=== PATIENT | female | born 1990 | race Hispanic/Latino ===

== ENCOUNTER 2021-05-26 10:46 | Emergency (ER) | payer OTHER ==
--- NOTE | 2021-05-26 11:58 | RAD REPORT ---
EXAM DESCRIPTION: US - Abdomen Exam Limited - 05/26/2021 11:50 am CLINICAL HISTORY: Epigastric discomfort x 1 month COMPARISON: No comparisons FINDINGS: The gallbladder demonstrates no gallstones. No pericholecystic fluid or gallbladder wall t hickening. The common bile duct is normal measuring 3 mm. The liver demonstrates no findings of intrahepatic biliary dilatation. IMPRESSION: Unremarkable examination.
[2021-05-26 15:09] LABS: Absolute Lymphocytes (CBC) 1.9 K/uL (0.7-4.9); Basophils % 0.6 % (0-1.3); Hematocrit 32.7 % (36.0-45.0); Lymphocytes % 29.3 % (15.3-44.8); MPV 9.5 fL (7.6-11.3); RBC Red Blood Cell Count 4.13 M/uL (3.86-4.86)
[2021-05-26 15:25] LABS: ALT/SGPT 16 U/L (12-78); AST/SGOT 6 U/L (15-37); Alkaline Phosphatase 71 U/L (45-117); BUN Blood Urea Nitrogen 8 mg/dL (7-18); Bicarbonate 26 mmol/L (21-32); Bilirubin Direct < 0.1 mg/dL (0-0.2); Bilirubin Total 0.3 mg/dL (0.2-1.0); Glucose Level 83 mg/dL (74-106); Lipase 96 U/L (73-393); Potassium 3.8 mmol/L (3.5-5.1); Protein, Total 8.3 g/dL (6.4-8.2); Sodium Level 139 mmol/L (136-145)
--- NOTE | 2021-05-26 15:30 | ER ---
Nurse's Notes [facility] Name: Misty Lugo Age: 30 yrs Sex: Female : 1990 Arrival Date: 05/26/2021 Time: 10:50 Bed 16 Private MD: Diagnosis: Abdominal pain, unspecified;UTI/ Urinary tract infection, site not specified Presentation: 05/26 11:26 Chief complaint: Patient states: Epigastric discomfort that began 1 month ago. Pt ss reports that the pain varies, but never goes away. Coronavirus screen: Client denies travel out of the [place] in the last 14 days. Ebola Screen: Patient denies exposure to infectious person. Patient denies travel to an Ebola-affected area in the 21 days before illness onset. Initial Sepsis Screen: Does the patient meet any 2 criteria? No. Patient's initial sepsis screen is negative. Does the patient have a suspected source of infection? No. Patient's initial sepsis screen is negative. Risk Assessment: Do you want to hurt yourself or someone else? Patient reports no desire to harm self or others. Onset of symptoms was April 22, 2021. 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 - Social history:: Smoking status: Patient denies any tobacco usage or history of. Screenin:58 Abuse screen: Denies threats or abuse. Nutritional screening: No deficits noted. vg1 Tuberculosis screening: No symptoms or risk factors identified. Fall Risk No fall in past 12 months (0 pts). No secondary diagnosis (0 pts). IV access (20 points). Ambulatory Aid- None/Bed Rest/Nurse Assist (0 pts). Gait- Normal/Bed Rest/Wheelchair (0 pts) Mental Status- Oriented to own ability (0 pts). Total Salgado Fall Scale indicates No Risk (0-24 pts). Assessment: 14:35 General: Appears in no apparent distress. comfortable, Behavior is calm, cooperative. vg1 Pain: Complains of pain in epigastric area, suprapubic area and right upper quadrant Pain currently is 2 out of 10 on a pain scale. Quality of pain is described as dull, Pain began about a month ago. Neuro: Level of Consciousness is awake, alert, obeys commands, Oriented to person, place, time, situation. Cardiovascular: Patient's skin is warm and dry. Respiratory: Airway is patent Respiratory effort is even, unlabored. GI: Bowel sounds present X 4 quads. Abd is soft and non tender X 4 quads. Reports bloating, epigastric pain, belching Patient currently denies diarrhea, nausea, vomiting. : No signs and/or symptoms were reported regarding the genitourinary system. EENT: No signs and/or symptoms were reported regarding the EENT system. Derm: Skin is intact, is healthy with good turgor. Musculoskeletal: Circulation, motion, and sensation intact. 17:06 Reassessment: Patient appears in no apparent distress at this time. Patient and/or vg1 family updated on plan of care and expected duration. Pain level reassessed. Patient is alert, oriented x 3, equal unlabored respirations, skin warm/dry/pink. Patient denies pain at this time. Vital Signs: 11:26 BP 114 / 75; Pulse 82; Resp 15; Temp 98.7(TE); Pulse Ox 100% on R/A; Weight 55 kg; ss Height 5 ft. 2 in. (160 cm); Pain 2/10; 14:55 BP 112 / 84; Pulse 70; Resp 16; Pulse Ox 100% ; vg1 11:26 Body Mass Index 21.48 (55.00 kg, 160 cm) ED Course: 10:50 Patient arrived in ED. ds1 11:28 Triage completed. ss 11:28 Arm band placed on right wrist. ss 11:50 US Abdomen Limited In Process Unspecified. EDMS 14:15 Ellie White, CRISTINA is Primary Nurse. vg1 14:27 Jaylen Blackwell PA is PHCP. jr8 14:27 Antoine Horan MD is Attending Physician. jr8 14:54 Initial lab(s) drawn, by pr, sent to lab. Inserted saline lock: 20 gauge in left vg1 antecubital area, using aseptic technique. Blood collected. 14:58 Patient has correct armband on for positive identification. Placed in gown. Bed in low vg1 position. Call light in reach. Side rails up X 1. Adult w/ patient. 15:29 Wilber Cruz MD is Referral Physician. jr8 17:05 No provider procedures requiring assistance completed. IV discontinued, intact, vg1 bleeding controlled, No redness/swelling at site. Pressure dressing applied. Administered Medications: No medications were administered Outcome: : Discharge ordered by . jr8 17:06 Discharged to home ambulatory, with family. vg1 17:06 Condition: stable 17:06 Discharge instructions given to patient, family, friend, Instructed on discharge instructions, follow up and referral plans. medication usage, Demonstrated understanding of instructions, follow-up care, medications, Prescriptions given X 3. 17:06 Patient left the ED. vg1 Signatures: Dispatcher [employer] EDOR Nereyda Lo ds1 Maryam Diana RN RN Jaylen Hoyt PA PA jr8 Ellie White RN RN vg1
--- NOTE | 2021-05-26 15:30 | EDPHYS ---
Physician Documentation [facility] Name: Misty Lugo Age: 30 yrs Sex: Female : 1990 Arrival Date: 05/26/2021 Time: 10:50 Bed 16 Private MD: TALHA Physician Antoine Horan HPI: 05/26 15:27 This 30 yrs old Female presents to ER via Ambulatory with complaints of jr8 Abdominal Pain. 15:27 The patient presents with abdominal pain in the epigastric area, in the upper abdomen. jr8 Onset: The symptoms/episode began/occurred gradually, 1 month(s) ago. The symptoms do not radiate. Associated signs and symptoms: none. The symptoms are described as vague. Modifying factors: The symptoms are alleviated by nothing, the symptoms are aggravated by food. Severity of pain: At its worst the pain was mild in the emergency department the pain is unchanged. The patient has not experienced similar symptoms in the past. The patient has not recently seen a physician. 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 - Social history:: Smoking status: Patient denies any tobacco usage or history of. ROS: 15:27 Eyes: Negative for injury, pain, redness, and discharge, ENT: Negative for injury, jr8 pain, and discharge, Neck: Negative for injury, pain, and swelling, Cardiovascular: Negative for chest pain, palpitations, and edema, Respiratory: Negative for shortness of breath, cough, wheezing, and pleuritic chest pain, Back: Negative for injury and pain, MS/Extremity: Negative for injury and deformity, Skin: Negative for injury, rash, and discoloration, Neuro: Negative for headache, weakness, numbness, tingling, and seizure. 15:27 Abdomen/GI: Positive for abdominal pain, Negative for nausea, vomiting, and diarrhea, abdominal distension, hematemesis, black/tarry stool, rectal pain, rectal bleeding, bowel incontinence, flatulence. Exam: 15:27 Constitutional: This is a well developed, well nourished patient who is awake, alert, jr8 and in no acute distress. ENT: Nares patent. No nasal discharge, no septal abnormalities noted. Tympanic membranes are normal and external auditory canals are clear. Oropharynx with no redness, swelling, or masses, exudates, or evidence of obstruction, uvula midline. Mucous membranes moist. Cardiovascular: Regular rate and rhythm with a normal S1 and S2. No gallops, murmurs, or rubs. Normal PMI, no JVD. No pulse deficits. Respiratory: Lungs have equal breath sounds bilaterally, clear to auscultation and percussion. No rales, rhonchi or wheezes noted. No increased work of breathing, no retractions or nasal flaring. Abdomen/GI: Soft, non-tender, with normal bowel sounds. No distension or tympany. No guarding or rebound. No evidence of tenderness throughout. Back: No spinal tenderness. No costovertebral tenderness. Full range of motion. Skin: Warm, dry with normal turgor. Normal color with no rashes, no lesions, and no evidence of cellulitis. MS/ Extremity: Pulses equal, no cyanosis. Neurovascular intact. Full, normal range of motion. Neuro: Awake and alert, GCS 15, oriented to person, place, time, and situation. Cranial nerves II-XII grossly intact. Motor strength 5/5 in all extremities. Sensory grossly intact. Cerebellar exam normal. Normal gait. Vital Signs: 11:26 BP 114 / 75; Pulse 82; Resp 15; Temp 98.7(TE); Pulse Ox 100% on R/A; Weight 55 kg; ss Height 5 ft. 2 in. (160 cm); Pain 2/10; 14:55 BP 112 / 84; Pulse 70; Resp 16; Pulse Ox 100% ; vg1 11:26 Body Mass Index 21.48 (55.00 kg, 160 cm) MDM: 14:28 Patient medically screened. [facility] 15:27 Data reviewed: vital signs, nurses notes, lab test result(s), radiologic studies, 8 ultrasound. Data interpreted: Pulse oximetry: on room air is 100 %. Interpretation: normal. 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 ED course: Patient with no acute findings on labs or ultrasonography. Patient has remained hemodynamically stable and without fever. Abdomen soft and benign in appearance and upon palpation. Recommended follow-up with gastroenterology. Close return precautions given. Patient understands everything discussed with her and will follow up and/or come back. 05/26 14:27 Order name: Basic Metabolic Panel [facility] 05/26 14:27 Order name: CBC with Diff; Complete Time: 15:16 [facility] 05/26 14:27 Order name: Hepatic Function; Complete Time: 15:27 [facility] 05/26 14:27 Order name: Lipase; Complete Time: 15:27 [facility] 05/26 14:28 Order name: Basic Metabolic Panel; Complete Time: 15:27 EDMS 05/26 16:00 Order name: Urine Dipstick-Ancillary; Complete Time: 16:25 EDNY 05/26 11:32 Order name: US Abdomen Limited; Complete Time: 14:27 ss 05/26 14:27 Order name: IV Saline Lock; Complete Time: 14:54 [facility] 05/26 14:27 Order name: Labs collected and sent; Complete Time: 14:54 [facility] 05/26 14:55 Order name: Urine Dipstick-Ancillary (obtain specimen); Complete Time: 16:05 [facility] 05/26 14:55 Order name: Urine Test (obtain specimen); Complete Time: 16:05 [facility] 05/26 16:01 Order name: Urine Microscopic Only bd 05/26 16:39 Order name: Urine Culture EDMS Administered Medications: No medications were administered Disposition: 05/27 07:28 Co-signature as Attending Physician, Antoine Horan MD I agree with the assessment and hugo plan of care. Disposition Summary: 05/26/21 15:29 Discharge Ordered Location: Home jr8 Problem: new jr8 Symptoms: have improved jr8 Condition: Stable jr8 Diagnosis - Abdominal pain, unspecified jr8 - UTI/ Urinary tract infection, site not specified jr8 Followup: jr8 - With: Wilber Cruz MD - When: 2 - 3 days - Reason: Recheck today's complaints, Continuance of care, Re-evaluation by your physician Discharge Instructions: - Discharge Summary Sheet jr8 - Abdominal Pain, Adult jr8 Forms: - Medication Reconciliation Form jr8 - Thank You Letter jr8 - Antibiotic Education jr8 - Prescription Opioid Use jr8 Prescriptions: - omeprazole 40 mg Oral capsule,delayed release(DR/EC) - take 1 capsule by ORAL route once daily before a meal; 30 capsule; Refills: 0, jr8 Product Selection Permitted - dicyclomine 20 mg Oral Tablet - take 1 tablet by ORAL route 3 times per day As needed; 20 tablet; Refills: 0, jr8 Product Selection Permitted - Macrobid 100 mg Oral Capsule - take 1 capsule by ORAL route every 12 hours for 7 days; 14 capsule; Refills: 0, jr8 Product Selection Permitted Signatures: Dispatcher [employer] Antoine Angulo MD MD cha Smirch, Shelby, RN RN Jaylen Hoyt PA PA jr8
[2021-05-26 16:00] LABS: Urine Blood 3+ (Negative); Urine Glucose Negative (Negative); Urine Protein Negative (Negative)
[2021-05-26 16:38] LABS: Urine Bacteria LOADED /HPF (<20); Urine RBC <5 /HPF (NONE SEEN)
[2021-05-26 17:23] VITALS: TEMP 98.7; O2SAT 100
[2021-05-26 17:32] VITALS: BP 112/84
== END 2021-05-26 17:06 | disposition home or self-care (01) ==
LOC: ER 10:46
DX: N39.0 Urinary tract infection, site not specified (principal)
CPT/HCPCS: 36415; 76705; 80048; 80076; 81003; 81015; 83690; 85025; 87077; 87086; 87088; 87186; 99284

== ENCOUNTER 2021-07-18 13:02 | Emergency (ER) | payer OTHER ==
[2021-07-18 13:30] LABS: Urine Blood Negative (Negative); Urine Glucose Negative (Negative); Urine Protein Negative (Negative)
[2021-07-18 14:01] LABS: Urine Bacteria 20-50 /HPF (<20); Urine RBC NONE SEEN /HPF (NONE SEEN)
[2021-07-18] MEDS ORDERED: MORPHINE 4 MG/ML SYR ONE (14:03)
[2021-07-18] MEDS ORDERED: NA CHLORIDE 0.9% 1,000 ML ONE (14:04)
[2021-07-18] MEDS ORDERED: ONDANSETRON 4 MG/2 ML VIAL ONE (14:04)
[2021-07-18 14:14] LABS: Absolute Lymphocytes (CBC) 1.1 K/uL (0.7-4.9); Basophils % 0.5 % (0-1.3); Hematocrit 31.3 % (36.0-45.0); Lymphocytes % 18.5 % (15.3-44.8); MPV 10.1 fL (7.6-11.3); RBC Red Blood Cell Count 4.15 M/uL (3.86-4.86)
[2021-07-18 14:33] LABS: ALT/SGPT 17 U/L (12-78); AST/SGOT 6 U/L (15-37); Albumin 4.1 g/dL (3.4-5.0); Alkaline Phosphatase 91 U/L (45-117); BUN Blood Urea Nitrogen 8 mg/dL (7-18); Bicarbonate 26 mmol/L (21-32); Bilirubin Direct < 0.1 mg/dL (0-0.2); Bilirubin Total 0.2 mg/dL (0.2-1.0); Glucose Level 98 mg/dL (74-106); Lipase 80 U/L (73-393); Potassium 3.7 mmol/L (3.5-5.1); Protein, Total 8.4 g/dL (6.4-8.2); Sodium Level 142 mmol/L (136-145)
[2021-07-18] MEDS ORDERED: PROMETHAZINE INJ 25 MG/ML AMP ONE ×2 (14:50→16:57)
[2021-07-18] MEDS ORDERED: KETOROLAC 30 MG/ML INJ ONE (14:59)
[2021-07-18] MEDS ORDERED: ASPIRIN 81 MG CHEWABLE TABLET ONE (14:59)
--- NOTE | 2021-07-18 15:19 | RAD REPORT ---
EXAM DESCRIPTION: CT - Abdomen Pelvis W Contrast - 07/18/2021 3:00 pm CLINICAL HISTORY: ABD PAIN, nausea, history of gastritis COMPARISON: Abdomen Exam Limited dated 05/26/2021 TECHNIQUE: Biphasic, helical CT imaging of the abdomen and pelvis was performed following 100 ml non -ionic IV contrast. No oral contrast administered. All CT scans are performed using dose optimization technique as appropriate and may include automated exposure control or mA/KV adjustment according to patient size. FINDINGS: No suspicious findings in the lung bases. The liver, spleen, and pancreas show no suspicious findings. Gallbladder and biliary tree are also wi thout suspicious finding. Symmetric renal function is seen with no hydronephrosis or suspicious renal mass. No pyelonephritis o r acute parenchymal process. Partially filled urinary bladder shows no acute finding. Cystitis cannot be fully excluded. No adrenal abnormalities. Heterogeneous enhancement of the uterus noted probably from 1 or more fibroids. Ovaries are posteriorly positioned near the presacral region. No primary ova valarie process identified. Fallopian tubes do not appear to be dilated. No gastric dilatation gastric wall thickening. Small bowel loops are not dilated. Stool is present in the cecum and proximal portion of the ascending colon. Remainder of the colon is mostly decompressed . Mild colitis cannot be excluded. No colon mass suspected. No free air, free fluid or pneumatosis. No mass or bulky lymphadenopathy. A very small incidental um bilical hernia is present. No suspicious bony findings. IMPRESSION: No obstruction, free air or surgically emergent finding. Mild nonspecific colitis is possible. Stomach and small bowel are not outside of range of normal. Hai endicitis is not suspected. No acute or TRANSPLANTER finding. Heterogeneity of the uterine wall enhancement is probably normal variant or possibly due to small fibroids. Myometritis would not be suspected.
--- NOTE | 2021-07-18 15:47 | EDPHYS ---
Physician Documentation [facility] Name: Misty Lugo Age: 31 yrs Sex: Female : 1990 Arrival Date: 07/18/2021 Time: 13:04 Bed 19 Private MD: ED Physician Austin Bhat HPI: 07/18 13:36 This 31 yrs old Female presents to ER via Ambulatory with complaints of pm1 Abdominal Pain. 13:36 The patient presents with abdominal pain that is diffuse. pm1 13:36 Onset: The symptoms/episode began/occurred 3 day(s) ago. The symptoms do not radiate. pm1 Associated signs and symptoms: Pertinent positives: nausea and vomiting, Pertinent negatives: chest pain, constipation, diarrhea, dysuria, fever, shortness of breath. The symptoms are described as vague. Modifying factors: The symptoms are alleviated by nothing, the symptoms are aggravated by nothing. Severity of pain: in the emergency department the pain is actually worse. Similar symptoms present roughly 1 month ago. Patient was seen by GI on follow-up. Had EGD and colonoscopy performed. Patient has follow-up with GI pending. 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 - Social history:: Smoking status: Patient denies any tobacco usage or history of. ROS: 13:36 Constitutional: Negative for fever, chills, and weight loss, Cardiovascular: Negative pm1 for chest pain, palpitations, and edema, Respiratory: Negative for shortness of breath, cough, wheezing, and pleuritic chest pain. 13:36 MS/Extremity: Negative for injury and deformity, Skin: Negative for injury, rash, and discoloration. 13:36 Neuro: Negative for headache, weakness, numbness, tingling, and seizure. 13:36 Abdomen/GI: Positive for abdominal pain, nausea and vomiting, Negative for diarrhea, constipation. 13:36 All other systems are negative. Exam: 13:36 Constitutional: This is a well developed, well nourished patient who is awake, alert, pm1 and in no acute distress. Head/Face: Normocephalic, atraumatic. 13:36 Back: No spinal tenderness. No costovertebral tenderness. Full range of motion. Skin: Warm, dry with normal turgor. Normal color with no rashes, no lesions, and no evidence of cellulitis. MS/ Extremity: Pulses equal, no cyanosis. Neurovascular intact. Full, normal range of motion. 13:36 Cardiovascular: Exam negative for acute changes, Rate: normal, Rhythm: regular, Pulses: no pulse deficits are appreciated. 13:36 Respiratory: Exam negative for acute changes, respiratory distress, shortness of breath. 13:36 Abdomen/GI: Inspection: abdomen appears normal, Palpation: soft, in all quadrants, moderate abdominal tenderness, in the umbilical area. 13:36 Neuro: Exam negative for acute changes, Orientation: is normal, Mentation: is normal, Motor: is normal, moves all fours. Vital Signs: 13:11 BP 113 / 79; Pulse 73; Resp 20; Temp 98.6(TE); Pulse Ox 99% on R/A; Weight 53.52 kg kg (R); Height 116 in. (294.64 cm); Pain 8/10; 14:00 BP 114 / 74; Pulse 70; Resp 18; Pulse Ox 100% on R/A; tr6 13:11 Body Mass Index 6.16 (53.52 kg, 294.64 cm) kg MDM: 13:20 Patient medically screened. pm1 15:45 Data reviewed: vital signs. Data interpreted: Pulse oximetry: on room air is 100 %. pm1 Interpretation: normal. Counseling: I had a detailed discussion with the patient and/or guardian regarding: the historical points, exam findings, and any diagnostic results supporting the discharge/admit diagnosis, lab results, radiology results, the need for outpatient follow up, a knocker off, to return to the emergency department if symptoms worsen or persist or if there are any questions or concerns that arise at home. 07/18 13:30 Order name: Urine Dipstick-Ancillary; Complete Time: 14:14 EDRI 07/18 13:34 Order name: Basic Metabolic Panel; Complete Time: 15:21 pm1 07/18 13:34 Order name: CBC with Diff; Complete Time: 15:21 pm1 07/18 13:34 Order name: Hepatic Function; Complete Time: 15:21 pm1 07/18 13:34 Order name: Lipase; Complete Time: 15:21 pm1 07/18 13:34 Order name: Urine Microscopic Only; Complete Time: 14:14 pm1 07/18 14:03 Order name: Urine Culture EDRI 07/18 14:28 Order name: CT Abd/Pelvis - IV Contrast Only; Complete Time: 15:21 pm1 07/18 14:51 Order name: Urine --Ancillary (enter results); Complete Time: 16:13 eb 07/18 13:34 Order name: IV Saline Lock; Complete Time: 14:03 pm1 07/18 13:34 Order name: Labs collected and sent; Complete Time: 14:04 pm1 07/18 13:34 Order name: Urine Dipstick-Ancillary (obtain specimen); Complete Time: 13:36 pm1 07/18 13:34 Order name: Urine Test (obtain specimen); Complete Time: 13:36 pm1 Administered Medications: 14:03 Drug: NS 0.9% 1000 ml Route: IV; Rate: 1000 ml; Site: left antecubital; tr6 16:08 Follow up: Response: No adverse reaction; IV Status: Completed infusion; IV Intake: tr6 1000ml 14:03 Drug: morphine 4 mg Route: IVP; Site: left antecubital; tr6 16:07 Follow up: Response: No adverse reaction; Pain is decreased tr6 14:03 Drug: Zofran (Ondansetron) 4 mg Route: IVP; Site: left antecubital; tr6 16:07 Follow up: Response: No adverse reaction tr6 14:47 Drug: Phenergan (promethazine) 12.5 mg Route: IVP; Site: left antecubital; tr6 16:07 Follow up: Response: No adverse reaction; Nausea is decreased tr6 16:00 Drug: Cipro (ciprofloxacin) 500 mg Route: PO; tr6 16:07 Follow up: Response: No adverse reaction tr6 16:00 Drug: Flagyl (metroNIDAZOLE) 500 mg Volume: 100 ml; Route: IVPB; Rate: 200 ml/hr; tr6 Infused Over: 30 mins; Site: left antecubital; 16:07 Follow up: Response: No adverse reaction; IV Status: Completed infusion; IV Intake: tr6 100ml Disposition Summary: 07/18/21 15:46 Discharge Ordered Location: Home pm1 Problem: new pm1 Symptoms: have improved pm1 Condition: Stable pm1 Diagnosis - Other abdominal pain - colitis pm1 Followup: pm1 - With: Emergency Department - When: As needed - Reason: Worsening of condition Followup: pm1 - With: Private Physician - When: 2 - 3 days - Reason: Recheck today's complaints, Continuance of care, Re-evaluation by your physician Discharge Instructions: - Discharge Summary Sheet pm1 - Abdominal Pain, Adult pm1 - Colitis pm1 Forms: - Medication Reconciliation Form pm1 - Thank You Letter pm1 - Antibiotic Education pm1 - Prescription Opioid Use pm1 Prescriptions: - Flagyl 500 mg Oral Tablet - take 1 tablet by ORAL route every 8 hours for 10 days; 30 tablet; Refills: 0, pm1 Product Selection Permitted - Cipro 500 mg Oral Tablet - take 1 tablet by ORAL route every 12 hours for 10 days; 20 tablet; Refills: 0, pm1 Product Selection Permitted - Tramadol 50 mg Oral Tablet - take 1 tablet by ORAL route every 8 hours as needed; 12 tablet; Refills: 0, pm1 Product Selection Permitted Addendum: 07/23/2021 04:37 Co-signature as Attending Physician, Austin delgado a2 Signatures: Dispatcher [employer] Armnado Fleming NP [employer] pm1 Austin Bhat MD MD pa2 Norma Schulz RN RN tr6 Divine Leos RN RN kg Corrections: (The following items were deleted from the chart) 07/18 18:12 13:36 The patient presents with abdominal pain pm1 pm1
--- NOTE | 2021-07-18 15:47 | ER ---
Nurse's Notes [facility] Name: Misty Lugo Age: 31 yrs Sex: Female : 1990 Arrival Date: 07/18/2021 Time: 13:04 Bed 19 Private MD: Diagnosis: Other abdominal pain-colitis Presentation: 07/18 13:11 Chief complaint: Patient states: Abdominal pain and nausea x 3 days. Pt stated I kg thought it might be constipation so I took ducolax and had a BM today and still no relief. Coronavirus screen: Vaccine status: Patient reports receiving the 2nd dose of the covid vaccine. Date April 11, 2021 [employer] Patient reports receiving the 1st dose of the Covid vaccine. Date March 14, 2021 [facility]. Ebola Screen: Patient negative for fever greater than or equal to 101.5 degrees Fahrenheit, and additional compatible Ebola Virus Disease symptoms Patient denies exposure to infectious person. Patient denies travel to an Ebola-affected area in the 21 days before illness onset. Initial Sepsis Screen: Does the patient meet any 2 criteria? No. Patient's initial sepsis screen is negative. Does the patient have a suspected source of infection? No. Patient's initial sepsis screen is negative. Risk Assessment: Do you want to hurt yourself or someone else? Patient reports no desire to harm self or others. Onset of symptoms was July 15, 2021. 13:11 Method Of Arrival: Ambulatory kg 13:11 Acuity: MARIIA 3 kg Triage Assessment: 13:16 General: Appears in no apparent distress. Behavior is calm, cooperative, appropriate kg for age. Pain: Complains of pain in abdomen. GI: Reports lower abdominal pain, upper abdominal pain, bloating, gaseousness. 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 - Social history:: Smoking status: Patient denies any tobacco usage or history of. Screenin:17 Abuse screen: Denies threats or abuse. Denies injuries from another. Nutritional kg screening: No deficits noted. Tuberculosis screening: No symptoms or risk factors identified. Tuberculosis screening: No symptoms or risk factors identified. Fall Risk None identified. Assessment: 14:04 GI: Bowel sounds present X 4 quads. Abd is non tender. tr6 15:03 Reassessment: Patient and/or family updated on plan of care and expected duration. Pain tr6 level reassessed. Patient is alert, oriented x 3, equal unlabored respirations, skin warm/dry/pink. Patient states symptoms have improved. Vital Signs: 13:11 BP 113 / 79; Pulse 73; Resp 20; Temp 98.6(TE); Pulse Ox 99% on R/A; Weight 53.52 kg kg (R); Height 116 in. (294.64 cm); Pain 8/10; 14:00 BP 114 / 74; Pulse 70; Resp 18; Pulse Ox 100% on R/A; tr6 13:11 Body Mass Index 6.16 (53.52 kg, 294.64 cm) kg ED Course: 13:00 Inserted saline lock: 18 gauge in left antecubital area, using aseptic technique. Blood tr6 collected. 13:04 Patient arrived in ED. ds1 13:16 Triage completed. kg 13:17 Patient has correct armband on for positive identification. kg 13:17 No provider procedures requiring assistance completed. kg 13:19 Norma Schulz, CRISTINA is Primary Nurse. tr6 13:20 Armando Flores NP is PHCP. pm1 13:20 Mervin Mclaughlin MD is Attending Physician. pm1 13:21 Austin Bhat MD is Attending Physician. pm1 14:59 CT Abd/Pelvis - IV Contrast Only In Process Unspecified. EDMS 14:59 Patient placed in an exam room. tr6 15:18 Urine Culture Sent. sv Administered Medications: 14:03 Drug: NS 0.9% 1000 ml Route: IV; Rate: 1000 ml; Site: left antecubital; tr6 16:08 Follow up: Response: No adverse reaction; IV Status: Completed infusion; IV Intake: tr6 1000ml 14:03 Drug: morphine 4 mg Route: IVP; Site: left antecubital; tr6 16:07 Follow up: Response: No adverse reaction; Pain is decreased tr6 14:03 Drug: Zofran (Ondansetron) 4 mg Route: IVP; Site: left antecubital; tr6 16:07 Follow up: Response: No adverse reaction tr6 14:47 Drug: Phenergan (promethazine) 12.5 mg Route: IVP; Site: left antecubital; tr6 16:07 Follow up: Response: No adverse reaction; Nausea is decreased tr6 16:00 Drug: Cipro (ciprofloxacin) 500 mg Route: PO; tr6 16:07 Follow up: Response: No adverse reaction tr6 16:00 Drug: Flagyl (metroNIDAZOLE) 500 mg Volume: 100 ml; Route: IVPB; Rate: 200 ml/hr; tr6 Infused Over: 30 mins; Site: left antecubital; 16:07 Follow up: Response: No adverse reaction; IV Status: Completed infusion; IV Intake: tr6 100ml Intake: 16:07 IV: 100ml; Total: 100ml. tr6 16:08 IV: 1000ml; Total: 1100ml. tr6 Outcome: 15:46 Discharge ordered by MD. pm1 16:43 Patient left the ED. tr6 Signatures: Dispatcher [employer] EDMS Elvira Potter, Nereyda Han RN ds1 Armando Flores, NOE JEWELRY STORE MANAGER pm1 Norma Schulz RN RN tr6 Divine Leos RN RN kg Corrections: (The following items were deleted from the chart) 13:21 13:11 BP 113 / 7; Pulse 73bpm; Resp 20bpm; Pulse Ox 99% RA; Temp 98.6F Temporal; 53.52 kg kg Reported; Height 116 in.; BMI: 6.17; Pain 8/10; kg
[2021-07-18] MEDS ORDERED: HYDROMORPHONE HCL 2 MG/ML inj ONE (16:12)
[2021-07-18] MEDS ORDERED: CIPROFLOXACIN HCL 500 MG TAB ONE (16:17)
[2021-07-18] MEDS ORDERED: METRONIDAZOLE 500mg IVPB 500 MG/100 ML BAG IV ONE (16:17)
[2021-07-18 16:50] VITALS: TEMP 98.6
[2021-07-18 16:51] VITALS: BP 114/74; O2SAT 100
== END 2021-07-18 16:43 | disposition home or self-care (01) ==
LOC: ER 13:02
DX: K52.9 Noninfective gastroenteritis and colitis, unspecified (principal)
CPT/HCPCS: 96361; 87088; 85025; 87086; 80048; 36415; 81025; 80076; 83690; 74177; 96375; 96374; 99284; Q9967; J2550; J1170; J7030; J2405; 81003; 81015

== ENCOUNTER 2021-07-21 16:32 | Emergency (ER) | payer OTHER ==
--- NOTE | 2021-07-21 17:49 | EDPHYS ---
Physician Documentation [facility] Name: Misty Lugo Age: 31 yrs Sex: Female : 1990 Arrival Date: 07/21/2021 Time: 16:37 Bed 16 Private MD: ED Physician Tj Hunt HPI: 07/21 18:16 This 31 yrs old Female presents to ER via Ambulatory with complaints of Nausea.jr8 18:16 The patient presents to the emergency department with nausea, vomiting. Onset: The jr8 symptoms/episode began/occurred gradually. Possible causes: antibiotics, quinolone. The symptoms are aggravated by nothing. The symptoms are alleviated by nothing. Associated signs and symptoms: The patient has no apparent associated signs or symptoms. Severity of symptoms: At their worst the symptoms were mild in the emergency department the symptoms are unchanged. The patient has not experienced similar symptoms in the past. The patient has been recently seen by a physician:. Patient recently seen in the emergency room diagnosed with colitis. Was put on Cipro and Flagyl. At the time was nauseated as well but did not go home with any nausea medicine. Stated that she has had some nausea and vomiting at home since then. Currently denies worsening of pain or any other new symptoms.. 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 - Social history:: Smoking status: Patient denies any tobacco usage or history of. ROS: 18:16 Eyes: Negative for injury, pain, redness, and discharge, ENT: Negative for injury, jr8 pain, and discharge, Neck: Negative for injury, pain, and swelling, Cardiovascular: Negative for chest pain, palpitations, and edema, Respiratory: Negative for shortness of breath, cough, wheezing, and pleuritic chest pain, Back: Negative for injury and pain, MS/Extremity: Negative for injury and deformity, Skin: Negative for injury, rash, and discoloration, Neuro: Negative for headache, weakness, numbness, tingling, and seizure. 18:16 Abdomen/GI: Positive for nausea and vomiting, Negative for abdominal pain, abdominal cramps, abdominal distension. Exam: 18:16 Constitutional: This is a well developed, well nourished patient who is awake, alert, jr8 and in no acute distress. Chest/axilla: Normal chest wall appearance and motion. Nontender with no deformity. No lesions are appreciated. Respiratory: Lungs have equal breath sounds bilaterally, clear to auscultation and percussion. No rales, rhonchi or wheezes noted. No increased work of breathing, no retractions or nasal flaring. Abdomen/GI: Soft, non-tender, with normal bowel sounds. No distension or tympany. No guarding or rebound. No evidence of tenderness throughout. Back: No spinal tenderness. No costovertebral tenderness. Full range of motion. Skin: Warm, dry with normal turgor. Normal color with no rashes, no lesions, and no evidence of cellulitis. MS/ Extremity: Pulses equal, no cyanosis. Neurovascular intact. Full, normal range of motion. Neuro: Awake and alert, GCS 15, oriented to person, place, time, and situation. Cranial nerves II-XII grossly intact. Motor strength 5/5 in all extremities. Sensory grossly intact. Vital Signs: 17:09 BP 134 / 72; Pulse 67; Resp 16; Temp 97.6(TE); Pulse Ox 100% on R/A; Weight 53.52 kg kg (R); Height 5 ft. 2 in. (160 cm); Pain 3/10; 17:09 Body Mass Index 20.91 (53.52 kg, 160 cm) kg MDM: 17:28 Patient medically screened. jr8 17:47 Data reviewed: vital signs, nurses notes, old medical records, and as a result, I will jr8 discharge patient. Data interpreted: Pulse oximetry: on room air is 100 %. Interpretation: normal. Counseling: I had a detailed discussion with the patient and/or guardian regarding: the historical points, exam findings, and any diagnostic results supporting the discharge/admit diagnosis, the need for outpatient follow up, a family practitioner, a process maintenance technician, to return to the emergency department if symptoms worsen or persist or if there are any questions or concerns that arise at home. Administered Medications: 17:48 Drug: Zofran (Ondansetron) 4 mg Route: PO; es2 Disposition: 07/22 11:13 Co-signature as Attending Physician, Tj Hunt MD I agree with the assessment and kdr plan of care. Disposition Summary: 07/21/21 17:48 Discharge Ordered Location: Home jr8 Problem: new jr8 Symptoms: have improved jr8 Condition: Stable jr8 Diagnosis - Nausea jr8 Followup: jr8 - With: Private Physician - When: 5 - 6 days - Reason: Recheck today's complaints, Continuance of care, Re-evaluation by your physician Discharge Instructions: - Discharge Summary Sheet jr8 - Nausea, Adult jr8 Forms: - Medication Reconciliation Form jr8 - Thank You Letter jr8 - Antibiotic Education jr8 - Prescription Opioid Use jr8 Prescriptions: - ondansetron 4 mg Oral tablet,disintegrating - take 1 tablet by ORAL route every 6 hours As needed; 16 tablet; Refills: 0, jr8 Product Selection Permitted Signatures: Tj Hunt MD MD [facility] Jaylen Blackwell PA PA jr8 Divine Leos, RN RN kg Susan Ellis RN RN es2
--- NOTE | 2021-07-21 17:49 | ER ---
Nurse's Notes [facility] Name: Misty Lugo Age: 31 yrs Sex: Female : 1990 Arrival Date: 07/21/2021 Time: 16:37 Bed 16 Private MD: Diagnosis: Nausea Presentation: 07/21 17:09 Chief complaint: Patient states: Nausea x 2 days. Pt stated, "I was just here Monday kg and they gave me nausea medications and it helped but yesterday it started again. They started me on Cipro, Flagyl, and tramadol but I've been throwing up the antibiotic.". Coronavirus screen: Vaccine status:. Ebola Screen: Patient negative for fever greater than or equal to 101.5 degrees Fahrenheit, and additional compatible Ebola Virus Disease symptoms Patient denies exposure to infectious person. Patient denies travel to an Ebola-affected area in the 21 days before illness onset. Initial Sepsis Screen: Does the patient meet any 2 criteria? No. Patient's initial sepsis screen is negative. Does the patient have a suspected source of infection? No. Patient's initial sepsis screen is negative. Risk Assessment: Do you want to hurt yourself or someone else? Patient reports no desire to harm self or others. Onset of symptoms was July 20, 2021. 17:09 Method Of Arrival: Ambulatory kg 17:09 Acuity: MARIIA 3 kg Triage Assessment: 17:15 General: Appears in no apparent distress. Behavior is calm, cooperative, appropriate kg for age, quiet. Pain: Complains of pain in abdomen Pain currently is 3 out of 10 on a pain scale. GI: Reports lower abdominal pain, nausea, vomiting. 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 - Social history:: Smoking status: Patient denies any tobacco usage or history of. Screenin:16 Abuse screen: Denies threats or abuse. Denies injuries from another. Nutritional kg screening: No deficits noted. Tuberculosis screening: No symptoms or risk factors identified. Fall Risk None identified. Vital Signs: 17:09 BP 134 / 72; Pulse 67; Resp 16; Temp 97.6(TE); Pulse Ox 100% on R/A; Weight 53.52 kg kg (R); Height 5 ft. 2 in. (160 cm); Pain 3/10; 17:09 Body Mass Index 20.91 (53.52 kg, 160 cm) kg ED Course: 16:37 Patient arrived in ED. mr 17:13 Triage completed. kg 17:15 Arm band placed on right wrist. kg 17:16 Patient has correct armband on for positive identification. kg 17:20 Aletha Simeon is Primary Nurse. aj2 17:27 Jaylen Blackwell PA is PHCP. jr8 17:27 Tj Hunt MD is Attending Physician. jr8 Administered Medications: 17:48 Drug: Zofran (Ondansetron) 4 mg Route: PO; es2 Outcome: 17:48 Discharge ordered by . jr8 17:51 Discharged to home ambulatory. aj2 17:51 Condition: stable 17:51 Discharge instructions given to patient, Instructed on discharge instructions, follow up and referral plans. Demonstrated understanding of instructions, follow-up care, medications, Prescriptions given X 1. 17:55 Patient left the ED. aj2 Signatures: Jason Aranza mr Jaylen Blackwell PA PA jr8 Divine Leos, RN RN kg Aletha Simeon aj2 Susan Ellis RN RN es2
[2021-07-21 18:00] VITALS: BP 134/72; TEMP 97.6; O2SAT 100
[2021-07-21] MEDS ORDERED: ONDANSETRON 4 MG (ODT) TAB ONE (18:12)
== END 2021-07-21 17:55 | disposition home or self-care (01) ==
LOC: ER 16:32
DX: R11.0 Nausea (principal)
CPT/HCPCS: 99283

== ENCOUNTER 2021-11-15 21:05 | Emergency (ER) | payer OTHER ==
--- OUTSIDE RECORDS SUMMARY | 2021-11-15 21:08 | XMS REPORT | Continuity of Care Document ---
:1990 Author Organization [facility] t Address [address] [place] [address] [address] [place] [address] Care Team Providers Name Role Phone Pcp, Does Not Have A Primary Care Physician VERITO Attending Clinician Unavailable Verito LYLES Attending Clinician Doctor Unassigned, Name Attending Clinician Unavailable Payers Payer Name Policy Type Policy Number Effective Date Expiration Date S ource Problems Condition Condition Condition Status Onset Resolution Last Treating Co mments Source Name Details Category Date Date Treatment Clinician Date No known No known Disease Unive rs active active ity of problems problems [facility] Allergies, Adverse Reactions, Alerts Allergy Allergy Status Severity Reaction(s) Onset Inactive Treating Comm ents Source Name Type Date Date Clinician NO KNOWN Drug Active Univers ALLERGIE Class ity of S [facility] Social History Social Habit Start Date Stop Date Quantity Comments Source Tobacco use and 2021-09-28 2021-09-28 Never used Universit y of exposure 00:00:00 00:00:00 [facility] Alcohol intake 2021-09-28 2021-09-28 Current drinker Unive rsity of 00:00:00 00:00:00 of alcohol [facility] (finding) [place] Sex Assigned [birth year] Universit y of 00:00:00 00:00:00 [facility] Smoking Status Start Date Stop Date Source Unknown if ever smoked Universit y [facility] Never smoker [facility] Medications Ordered Filled Start Stop Current Ordering Indication Dosage Frequency Signature Comments Components Source Medication Medication Date Date Medication? Clinician (SIG) Name Name pregabalin 2020-10 Yes Univers 150 mg 2-02 ity of capsule 00:00: [address] busPIRone 2020-10 Yes Univers 10 mg 0-28 ity of tablet 00:00: [place] 00 [facility] LINZESS 145 2020-10 Yes 1{capsu Take 1 U nivers mcg capsule 0-20 le} capsule by it y of 00:00: mouth [place] 00 daily. [facility] Vital Signs Vital Name Observation Time Observation Value Comments Source Systolic blood 2021-09-28 21:09:00 114 mm[Hg] Univer sity of pressure [facility] Diastolic blood 2021-09-28 21:09:00 77 mm[Hg] Unive rsity of [facility] Heart rate 2021-09-28 21:09:00 65 /min [facility] Body temperature 2021-09-28 21:09:00 37.17 [facility] Res[facility] rate 2021-09-28 21:09:00 18 /min [facility] Body height 2021-09-28 21:09:00 160 cm [facility] Body weight 2021-09-28 21:09:00 53.978 kg [facility] BMI 2021-09-28 21:09:00 21.08 kg/m2 [facility] Procedures Procedure Date / Time Performed Performing Clinician [facility] e PAP SMEAR-LIQUID 2021-09-28 22:15:00 Marie Sellers [facility] REFERRAL- 2021-07-31 05:01:00 Doctor Unassigned, No [facility] REQUEST/RESPONSE Name [facility] Encounters Start End Encounter Admission Attending Care Care Encounter Source Date/Time Date/Time Type Type Clinicians Facility Department ID 2022-09-30 2022-09-30 Outpatient R MARIE SELLERS [facility] [id number] Univers 13:00:00 13:00:[id number] [facility] 2021-09-28 2021-09-28 Office Marie Sellers [facility] [id number] Univers 15:04:04 16:24:40 Visit [place] [id number] i ty of [place] [id number] Freddy ZHAO [id number] Hi dical [address] 2021-09-28 2021-09-28 Outpatient R VERITO MARIE [facility] [id number] Univers 15:00:00 16:24:40 ity of [facility] 2021-07-31 2021-07-31 Orders Doctor COTY [id number] Univers 00:00:00 00:00:00 Only Unassigned, CATHI [id number] ity of [facility] [id number] Sukhwinder as [id number] [facility] [address] Results This patient has no known results.
[2021-11-15 22:08] LABS: Urine Blood 2+ (Negative); Urine Glucose Negative (Negative); Urine Protein Negative (Negative); Urine pH 5.5 (5.0-7.0)
[2021-11-15] MEDS ORDERED: ONDANSETRON 4 MG/2 ML VIAL ONE (22:12)
[2021-11-15] MEDS ORDERED: MORPHINE 4 MG/ML SYR ONE (22:12)
[2021-11-15] MEDS ORDERED: NA CHLORIDE 0.9% 1,000 ML ONE (22:12)
[2021-11-15 22:24] LABS: Absolute Lymphocytes (CBC) 2.3 K/uL (0.7-4.9); Hematocrit 33.9 % (36.0-45.0); Lymphocytes % 29.7 % (15.3-44.8); MPV 9.3 fL (7.6-11.3)
[2021-11-15 22:32] LABS: ALT/SGPT 18 U/L (12-78); AST/SGOT 9 U/L (15-37); Albumin 3.7 g/dL (3.4-5.0); Alkaline Phosphatase 83 U/L (45-117); BUN Blood Urea Nitrogen 5 mg/dL (7-18); Bicarbonate 27 mmol/L (21-32); Bilirubin Direct < 0.1 mg/dL (0-0.2); Bilirubin Total 0.2 mg/dL (0.2-1.0); Glucose Level 90 mg/dL (74-106); Lipase 227 U/L (73-393); Potassium 3.6 mmol/L (3.5-5.1); Protein, Total 7.8 g/dL (6.4-8.2); Sodium Level 138 mmol/L (136-145)
--- NOTE | 2021-11-15 23:57 | EDPHYS ---
Physician Documentation [facility] Name: Misty Lugo Age: 31 yrs Sex: Female : 1990 Arrival Date: 11/15/2021 Time: 21:05 Bed 17 Private MD: ED Physician Antoine Horan HPI: 11/15 23:41 This 31 yrs old Female presents to ER via Ambulatory with complaints of hugo Abdominal Pain. 23:41 The patient presents with abdominal pain in the epigastric area, in the upper abdomen, hugo abdominal distention in the upper abdomen. Onset: The symptoms/episode began/occurred today. The symptoms do not radiate. Associated signs and symptoms: Pertinent positives: nausea. The symptoms are described as crampy. Modifying factors: The symptoms are alleviated by nothing, the symptoms are aggravated by home stress. Severity of pain: At its worst the pain was mild in the emergency department the pain is unchanged. The patient has not experienced similar symptoms in the past. 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 - Social history:: Smoking status: Patient denies any tobacco usage or history of. - Family history:: not pertinent. ROS: 23:41 Constitutional: Negative for fever, chills, and weight loss, Eyes: Negative for injury, hugo pain, redness, and discharge, ENT: Negative for injury, pain, and discharge, Neck: Negative for injury, pain, and swelling, Cardiovascular: Negative for chest pain, palpitations, and edema, Respiratory: Negative for shortness of breath, cough, wheezing, and pleuritic chest pain, Back: Negative for injury and pain, : Negative for injury, bleeding, discharge, and swelling, MS/Extremity: Negative for injury and deformity, Skin: Negative for injury, rash, and discoloration, Neuro: Negative for headache, weakness, numbness, tingling, and seizure, Psych: Negative for depression, anxiety, suicide ideation, homicidal ideation, and hallucinations, Allergy/Immunology: Negative for hives, rash, and allergies, Endocrine: Negative for neck swelling, polydipsia, polyuria, polyphagia, and marked weight changes, Hematologic/Lymphatic: Negative for swollen nodes, abnormal bleeding, and unusual bruising. 23:41 Abdomen/GI: Positive for abdominal pain, abdominal cramps, of the epigastric area, right upper quadrant and left upper quadrant. Exam: 23:41 Constitutional: This is a well developed, well nourished patient who is awake, alert, hugo and in no acute distress. Head/Face: Normocephalic, atraumatic. Eyes: Pupils equal round and reactive to light, extra-ocular motions intact. Lids and lashes normal. Conjunctiva and sclera are non-icteric and not injected. Cornea within normal limits. Periorbital areas with no swelling, redness, or edema. ENT: Nares patent. No nasal discharge, no septal abnormalities noted. Tympanic membranes are normal and external auditory canals are clear. Oropharynx with no redness, swelling, or masses, exudates, or evidence of obstruction, uvula midline. Mucous membranes moist. Neck: Trachea midline, no thyromegaly or masses palpated, and no cervical lymphadenopathy. Supple, full range of motion without nuchal rigidity, or vertebral point tenderness. No Meningismus. Chest/axilla: Normal chest wall appearance and motion. Nontender with no deformity. No lesions are appreciated. Cardiovascular: Regular rate and rhythm with a normal S1 and S2. No gallops, murmurs, or rubs. Normal PMI, no JVD. No pulse deficits. Respiratory: Lungs have equal breath sounds bilaterally, clear to auscultation and percussion. No rales, rhonchi or wheezes noted. No increased work of breathing, no retractions or nasal flaring. Back: No spinal tenderness. No costovertebral tenderness. Full range of motion. Female : Normal external genitalia. Skin: Warm, dry with normal turgor. Normal color with no rashes, no lesions, and no evidence of cellulitis. MS/ Extremity: Pulses equal, no cyanosis. Neurovascular intact. Full, normal range of motion. Neuro: Awake and alert, GCS 15, oriented to person, place, time, and situation. Cranial nerves II-XII grossly intact. Motor strength 5/5 in all extremities. Sensory grossly intact. Cerebellar exam normal. Normal gait. Psych: Awake, alert, with orientation to person, place and time. Behavior, mood, and affect are within normal limits. 23:41 Abdomen/GI: Inspection: distension, that is mild, gravid appearance, ia not appreciated, Bowel sounds: normal, Palpation: mild abdominal tenderness, in the epigastric area, right upper quadrant and left upper quadrant, Liver: is firm, Hernia: not appreciated. Vital Signs: 21:19 BP 124 / 83; Pulse 61; Resp 18; Temp 98.7; Pulse Ox 100% on R/A; Weight 63.5 kg; Height tw5 5 ft. 2 in. (160 cm); Pain 7/10; 22:00 BP 126 / 81; Pulse 62; Resp 18 S; Pulse Ox 100% on R/A; as6 23:20 BP 115 / 74; Pulse 70; Resp 18 S; Pulse Ox 100% on R/A; as11/16 00:00 BP 121 / 79; Pulse 65; Resp 18 S; Pulse Ox 100% on R/A; as6 11/15 21:19 Body Mass Index 24.81 (63.50 kg, 160 cm) tw: 11/15 21:44 Patient medically screened. [facility] 11/15 21:19 Order name: Basic Metabolic Panel; Complete Time: 22:42 11/15 21:19 Order name: CBC with Diff; Complete Time: 22:42 11/15 21:19 Order name: Hepatic Function; Complete Time: 22:42 11/15 21:19 Order name: Lipase; Complete Time: 22:42 11/15 22:08 Order name: Urine Dipstick-Ancillary; Complete Time: 22:42 [facility] 11/15 22:09 Order name: Urine --Ancillary (enter results) 11/15 21:19 Order name: IV Saline Lock; Complete Time: 22:09 11/15 21:19 Order name: Labs collected and sent; Complete Time: 22:09 11/15 21:19 Order name: Urine Dipstick-Ancillary (obtain specimen); Complete Time: 22:09 tw5 11/15 21:52 Order name: CT Abd/Pelvis - IV Contrast Only [facility] 11/15 23:36 Order name: US Abdomen Limited [facility] 11/15 21:49 Order name: Urine Test (obtain specimen); Complete Time: 22:08 hugo Administered Medications: 22:17 Drug: NS 0.9% 1000 ml Route: IV; Rate: 1 bolus; Site: left antecubital; as6 11/16 00:20 Follow up: Response: No adverse reaction; IV Status: Completed infusion; IV Intake: as6 1000ml 11/15 22:17 Drug: morphine 4 mg Route: IVP; Site: left antecubital; as6 11/16 00:20 Follow up: Response: No adverse reaction; RASS: Alert and Calm (0) as6 11/15 22:17 Drug: Zofran (Ondansetron) 4 mg Route: IVP; Site: left antecubital; as6 11/16 00:20 Follow up: Response: No adverse reaction as6 Disposition Summary: 11/15/21 23:56 Discharge Ordered Location: Home hugo Problem: new hugo Symptoms: have improved hugo Condition: Stable hugo Diagnosis - Abdominal tenderness hugo Followup: hugo - With: Private Physician - When: 2 - 3 days - Reason: Recheck today's complaints, Re-evaluation by your physician Followup: hugo - With: - When: 2 - 3 days - Reason: Recheck today's complaints, Re-evaluation by your physician Discharge Instructions: - Discharge Summary Sheet hugo - Abdominal Pain, Adult hugo - Abdominal Pain, Adult, [id number] hugo - Abdominal Bloating [facility] Forms: - Medication Reconciliation Form [facility] - Thank You Letter [facility] - Antibiotic Education hugo - Prescription Opioid Use [facility] Prescriptions: - ondansetron 4 mg Oral tablet,disintegrating - place 1 tablet by TRANSLINGUAL route every 8 hours; 20 tablet; Refills: 0, hugo Product Selection Permitted - Pepcid 20 mg Oral Tablet - take 1 tablet by ORAL route every 12 hours for 10 days; 20 tablet; Refills: 0, hugo Product Selection Permitted - dicyclomine 20 mg Oral Tablet - take 1 tablet by ORAL route 4 times per day; 28 tablet; Refills: 0, Product hugo Selection Permitted Signatures: Dispatcher [employer] Antoine Angulo MD MD cha Wood, Tiffany tw5 Shoaib Pastor, RN RN as6
--- NOTE | 2021-11-15 23:57 | ER ---
Nurse's Notes [facility] Name: Misty Lugo Age: 31 yrs Sex: Female : 1990 Arrival Date: 11/15/2021 Time: 21:05 Bed 17 Private MD: Diagnosis: Abdominal tenderness Presentation: 11/15 21:19 Chief complaint: Patient states: "I have abdominal pain, it started around 4 pm but it tw5 has been getting worse and worse. I had some tea and gas relief tablets, but it hasn't help. It hurts right in the middle from the belly button. I cannot sleep, I am not okay in any position. ". Coronavirus screen: Vaccine status: Patient reports receiving the 2nd dose of the covid vaccine. [employer]. Ebola Screen: Patient negative for fever greater than or equal to 101.5 degrees Fahrenheit, and additional compatible Ebola Virus Disease symptoms Patient denies exposure to infectious person. Patient denies travel to an Ebola-affected area in the 21 days before illness onset. Initial Sepsis Screen: Does the patient meet any 2 criteria? No. Patient's initial sepsis screen is negative. Does the patient have a suspected source of infection? No. Patient's initial sepsis screen is negative. Risk Assessment: Do you want to hurt yourself or someone else? Patient reports no desire to harm self or others. Onset of symptoms was November 15, 2021 at 16:00. 21:19 Method Of Arrival: Ambulatory tw5 21:22 Acuity: MARIIA 3 tw5 Triage Assessment: 21:20 General: Appears in no apparent distress. Behavior is calm, cooperative, appropriate tw5 for age. Pain: Complains of pain in epigastric area and umbilical area Pain currently is 7 out of 10 on a pain scale. Pain: Quality of pain is described as aching, dull. GI: Reports Pain is 7 out of 10 on a pain scale. Patient currently denies diarrhea, vomiting. 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 - Social history:: Smoking status: Patient denies any tobacco usage or history of. - Family history:: not pertinent. Screenin:22 Abuse screen: Denies threats or abuse. Denies injuries from another. Nutritional tw5 screening: No deficits noted. Nutritional screening: No deficits noted. Tuberculosis screening: No symptoms or risk factors identified. Fall Risk None identified. Assessment: 22:00 General: Appears in no apparent distress. Behavior is calm, cooperative. Pain: as6 Complains of pain in epigastric area. Neuro: Level of Consciousness is awake, alert, obeys commands, Oriented to person, place, time, situation. Cardiovascular: Capillary refill < 3 seconds Patient's skin is warm and dry. Respiratory: Airway is patent Trachea midline Respiratory effort is even, unlabored, Respiratory pattern is regular, symmetrical. GI: Bowel sounds present X 4 quads. Abd is soft X 4 quads Abdomen is tender to palpation in epigastric area Reports upper abdominal pain, Patient currently denies constipation, diarrhea, nausea, vomiting. Derm: Skin is intact, is healthy with good turgor. 23:21 General: pt report pain has improved but there is still pain present, provider notified as6 . Vital Signs: 21:19 BP 124 / 83; Pulse 61; Resp 18; Temp 98.7; Pulse Ox 100% on R/A; Weight 63.5 kg; Height tw5 5 ft. 2 in. (160 cm); Pain 7/10; 22:00 BP 126 / 81; Pulse 62; Resp 18 S; Pulse Ox 100% on R/A; as6 23:20 BP 115 / 74; Pulse 70; Resp 18 S; Pulse Ox 100% on R/A; as6 11/16 00:00 BP 121 / 79; Pulse 65; Resp 18 S; Pulse Ox 100% on R/A; as6 11/15 21:19 Body Mass Index 24.81 (63.50 kg, 160 cm) tw5 ED Course: 11/15 21:05 Patient arrived in ED. kc5 21:22 Triage completed. tw5 21:22 Arm band placed on right wrist. tw5 21:44 Antoine Horan MD is Attending Physician. [facility] 21:48 Shoaib Pastor, RN is Primary Nurse. as6 22:00 Inserted saline lock: 20 gauge in left antecubital area, using aseptic technique. Blood as6 collected. 22:41 Placed in gown. Bed in low position. Call light in reach. Side rails up X2. Pulse ox as6 on. NIBP on. Warm blanket given. 23:11 CT Abd/Pelvis - IV Contrast Only In Process Unspecified. EDMS 23:55 Rickie Bearden MD is Referral Physician. [facility] 11/16 00:19 No provider procedures requiring assistance completed. IV discontinued, intact, as6 bleeding controlled, No redness/swelling at site. Pressure dressing applied. 00:23 US Abdomen Limited In Process Unspecified. EDMS Administered Medications: 11/15 22:17 Drug: NS 0.9% 1000 ml Route: IV; Rate: 1 bolus; Site: left antecubital; as6 11/16 00:20 Follow up: Response: No adverse reaction; IV Status: Completed infusion; IV Intake: as6 1000ml 11/15 22:17 Drug: morphine 4 mg Route: IVP; Site: left antecubital; as6 11/16 00:20 Follow up: Response: No adverse reaction; RASS: Alert and Calm (0) as6 11/15 22:17 Drug: Zofran (Ondansetron) 4 mg Route: IVP; Site: left antecubital; as6 11/16 00:20 Follow up: Response: No adverse reaction as6 Intake: 00:20 IV: 1000ml; Total: 1000ml. as6 Outcome: 11/15 23:56 Discharge ordered by . [facility] 11/16 00:19 Discharged to home ambulatory, with significant other. as6 Condition: stable Discharge instructions given to patient, Instructed on discharge instructions, follow up and referral plans. medication usage, Demonstrated understanding of instructions, follow-up care, medications, Prescriptions given X 3. 00:20 Patient left the ED. as6 Signatures: Dispatcher [employer] EDMS Antoine Horan MD MD cha Wood, Tiffany tw5 Shoaib Pastor, RN RN as6 Alma Mistry kc5
[2021-11-16 04:24] VITALS: TEMP 98.7; O2SAT 100
[2021-11-16 04:28] VITALS: BP 121/79
--- NOTE | 2021-11-16 07:26 | RAD REPORT ---
EXAM DESCRIPTION: US - Abdomen Exam Limited - 11/16/2021 12:23 am CLINICAL HISTORY: ABD PAIN Preliminary findings provided at the time of the study. COMPARISON: CT study November 15 FINDINGS: No gallstones, sludge or other abnormalities within the gallbladder lumen. There is no wal l thickening or pericholecystic fluid. No common duct stone or biliary tree dilatation identified. IMPRESSION: Normal gallbladder and biliary tree ultrasound.
--- NOTE | 2021-11-16 11:43 | RAD REPORT ---
EXAM DESCRIPTION: CT - Abdomen Pelvis W Contrast - 11/16/2021 6:07 am CLINICAL HISTORY: ABD PAIN. Mid abdominal pain. History of IBS. COMPARISON: CT of the abdomen and pelvis from July 18, 2021. TECHNIQUE: CT of the abdomen and pelvis was performed following intravenous administration of iodina leroy contrast. Arterial phase images through the abdomen, and portal venous phase images through the a bdomen and pelvis were obtained. Oral contrast was not administered. Axial, coronal, and sagittal sof t tissue window reconstructions were created and sent to PACS. This exam was performed according to our departmental dose-optimization program, which includes autom ated exposure control, adjustment of the mA and/or kV according to patient size and/or use of iterati ve reconstruction technique. FINDINGS: Thoracic: No significant abnormality. Hepatobiliary: No concerning hepatic lesion identified. The portal veins are patent. Nonspecific dist ended configuration of the gallbladder. No calcified gallstones or gallbladder wall thickening identi fied. No biliary ductal dilatation. Pancreas: Unremarkable. Spleen: Unremarkable. Gastrointestinal: No evidence of bowel obstruction or perienteric inflammation. The appendix is aleida l. Small to moderate amount of fecal material throughout the colon. Adrenals: No abnormality identified in either adrenal gland. Renal: Similar appearance of mild fullness of both renal collecting systems. No concerning parenchyma l abnormality in either kidney. No hydronephrosis or urolithiasis. Bladder/Reproductive: Unremarkable appearance of the urinary bladder by CT technique. Vascular/Lymphatics: Mildly prominent mesenteric lymph nodes. Abdominal aorta is normal in caliber. Musculoskeletal: No concerning osseous lesion identified. Moderate disc bulges at L4-5 and L5-S1 with borderline central canal narrowing to 0.8 cm AP. Mild bilateral neuroforaminal narrowing at these le vels. Fluid / peritoneum: No significant free fluid. No free intraperitoneal air identified. IMPRESSION: 1. No bowel obstruction or inflammatory changes 2. Small to moderate amount of fecal material throughout the colon. 3. Mildly prominent mesenteric lymph nodes, nonspecific, but can be seen in the setting of mesenter ic adenitis. 4. Nonspecific distended configuration of the gallbladder, possibly physiologic. No wall thickening or inflammatory changes. If there is clinical concern for acute cholecystitis, right upper quadrant ultrasound the obtained. Electronically signed by: Nelly Arriaga MD 11/15/2021 11:18 PM MANAGER PROGRAM MANAGEMENT Due to temporary technical issues with the PACS/Fluency reporting system, reports are being signed by the in house radiologists without review as a courtesy to insure prompt reporting. The interpreting radiologist is fully responsible for the content of the report.
== END 2021-11-16 00:20 | disposition home or self-care (01) ==
LOC: ER 21:05
DX: R10.816 Epigastric abdominal tenderness (principal)
CPT/HCPCS: 96361; 85025; 80048; 36415; 81025; 80076; 81003; 83690; 74177; 76705; 96375; 96374; 99284; Q9967; J7030; J2405